=== PATIENT | female | born 1945 | race Caucasian/White ===

== ENCOUNTER → 2021-06-24 | Day surgery (SDC) | payer MEDICARE ==
[~2021-06-24] VITALS: Ht 160 cm; Wt 82.5 kg
[~2021-06-24] MED LIST: ACETAMINOPHEN500 M1 PO; ADVIL PM CAPLE1 EACH PO; AMARYL2 MG PO; HYOSCYAMINE0.375 M1 PO; NORCO 5-325 TA1 EACH PO; OMEPRAZOLE40 MG PO; ONDANSETRON ODT8 MG PO; ZOFRAN4 MG PO; ZOFRAN4 MG SL
[2021-06-24 10:13] LABS: HCT 41.6 % (37.0-47.0); HGB 14.6 g/dl (12.5-16.0); MCH 32.6 pg (25.0-31.0); MCHC 35.1 g/dL (32.0-36.0); MCV 92.9 fL (78.0-100.0); MPV 10.3 fL (6.0-9.5); RBC 4.48 M/uL (4.20-5.40); RDW 11.8 % (11.5-14.0); WBC 7.2 K/uL (4.0-10.5)
[2021-06-24 10:32] LABS: ALBUMIN 4.1 g/dL (3.4-5.0); BILIRUBIN - TOTAL 0.7 mg/dL (0.2-1.0); CREATININE 0.96 mg/dL (0.51-0.95); GLOBULIN (CALCULATION) 4.2 g/dL; POTASSIUM 4.2 mmol/L (3.5-5.1); TOTAL PROTEIN 8.3 g/dL (6.4-8.2)
== END | disposition home or self-care (01) ==
LOC: FAS 09:23
PROVIDERS: Surgery
DX: K31.9 Disease of stomach and duodenum, unspecified (principal); K29.71 Gastritis, unspecified, with bleeding; R19.7 Diarrhea, unspecified; E11.9 Type 2 diabetes mellitus without complications; Z79.84 Long term (current) use of oral hypoglycemic drugs; E66.9 Obesity, unspecified; Z68.32 Body mass index [BMI] 32.0-32.9, adult; Z96.653 Presence of artificial knee joint, bilateral; Z87.891 Personal history of nicotine dependence; Z91.013 Allergy to seafood; Z88.1 Allergy status to other antibiotic agents
CPT/HCPCS: 36415; 80053; J2250; J2704; J7120

== ENCOUNTER 2022-01-12 06:31 | Emergency (ER) | payer MEDICARE ==
[2022-01-12] MEDS ORDERED: CEPHALEXIN500 MG PO (10:00)
[2022-01-12] MEDS ORDERED: BACTRIM DS TAB1 EAC1 PO (10:00)
== END 2022-01-12 10:11 | disposition home or self-care (01) ==
LOC: FER 06:31
DX: L03.113 Cellulitis of right upper limb (principal); E11.9 Type 2 diabetes mellitus without complications; Z79.84 Long term (current) use of oral hypoglycemic drugs; Z88.0 Allergy status to penicillin
CPT/HCPCS: 93971